=== PATIENT | male | born 1955 | race Caucasian/White ===

== ENCOUNTER 2018-02-23 10:22 | Day surgery (SDC) | payer MEDICARE, MEDICAID ==
[2018-02-18 11:31] LABS: BASOPHILS % (AUTO) 0.3 % (0-1); EOSINOPHILS # (AUTO) 0.2 X10'3 (0-0.9); EOSINOPHILS % (AUTO) 3.7 % (0-6); HEMATOCRIT 43.7 % (42.0-52.0); HEMOGLOBIN 14.6 g/dl (14.0-17.9); LYMPHOCYTES % (AUTO) 21.2 % (21-51); MEAN CORPUSCULAR HEMOGLOBIN 29.6 PG (27.0-31.0); MEAN CORPUSCULAR HGB CONC 33.5 % (33.0-36.5); MEAN CORPUSCULAR VOLUME 88.1 FL (78-98); MEAN PLATELET VOLUME 7.5 FL (7.4-10.4); MONOCYTES # (AUTO) 0.5 X10'3 (0-0.9); MONOCYTES % (AUTO) 10.6 % (2-12); NEUTROPHILS # (AUTO) 3.2 X10'3 (1.8-7.7); NEUTROPHILS % (AUTO) 64.2 % (42-75); PLATELET COUNT 240 X10'3 (140-440); RED BLOOD COUNT 4.96 X10'6 (4.70-6.10); WHITE BLOOD COUNT 4.9 X10'3 (4.5-11.0)
[2018-02-18 11:41] LABS: ALBUMIN 3.5 G/DL (3.4-5.0); ANION GAP 9 (8-16); BLOOD UREA NITROGEN 22 MG/DL (7-18); BUN/CREATININE RATIO 22.2 (5.4-32.0); CALCIUM 8.7 MG/DL (8.5-10.1); CHLORIDE 106 MMOL/L (99-107); CREATININE 0.99 MG/DL (0.60-1.10); GLUCOSE 111 MG/DL (70-104); INR 1.1 INR; PARTIAL THROMBOPLASTIN TIME 30 SECONDS (22-32); POTASSIUM 4.3 MMOL/L (3.5-5.1); PROTHROMBIN TIME 11.1 SECONDS (9.0-12.0); SODIUM 142 MMOL/L (135-145); TOTAL CARBON DIOXIDE 26.8 MMOL/L (24-32); eGFR 77 ML/MIN
[~2018-02-23] VITALS: Ht 182.9 cm; Wt 109.0 kg
[2018-02-23] VITALS (10 sets, daily range): BP systolic 107–130; BP diastolic 51–95
[2018-02-23] MEDS ORDERED: diphenhydrAMINE 25mg capsule PO PRN (10:40)
[2018-02-23] MEDS ORDERED: LIDOcaine/PRILOcaine 5gm cream TP ONE (10:40)
[2018-02-23] MEDS ORDERED: LORazepam 0.5 MG tablet PO PRN (10:40)
[2018-02-23] MEDS ORDERED: CARV6.253 PO (11:06)
[2018-02-23] MEDS ORDERED: POTA20TA10 PO (11:06)
[2018-02-23] MEDS ORDERED: LISI-604 PO (11:06)
[2018-02-23] MEDS ORDERED: APIX5TAB3 PO (11:06)
[2018-02-23] MEDS ORDERED: FURO40TA4 PO (11:06)
[2018-02-23] MEDS ORDERED: midazolam 2 mg/2 ml injection ONE (13:10)
[2018-02-23] MEDS ORDERED: verapamil 2.5 mg/ml inj IV ONE (13:10)
[2018-02-23] MEDS ORDERED: fentaNYL/PF 50MCG/1 ML 2ML syringe ONE (13:10)
[2018-02-23] MEDS ORDERED: nitroGLYCERIN-Tridil 50MG/D5W 250 ML IV ONE (13:10)
[2018-02-23] MEDS ORDERED: iohexol 350MG/ML 100ml bottle IV ONE (13:11)
[2018-02-23] MEDS ORDERED: heparin 1,000unit/ml 10ml vial 10 ML ONE (13:11)
[2018-02-23] MEDS ORDERED: LIDOcaine 1% 30ml preserv. free vial ONE (13:11)
== END 2018-02-23 18:20 | disposition home or self-care (01) ==
LOC: SSTAY O 10:22
PROVIDERS: ATTEND Internal Medicine Interventional Cardiology
DX: I25.118 Atherosclerotic heart disease of native coronary artery with other forms of angina pectoris (principal); I48.91 Unspecified atrial fibrillation; I45.2 Bifascicular block; I25.82 Chronic total occlusion of coronary artery; I11.0 Hypertensive heart disease with heart failure; I50.22 Chronic systolic (congestive) heart failure; Z96.641 Presence of right artificial hip joint; Z79.01 Long term (current) use of anticoagulants; Z79.899 Other long term (current) drug therapy
CPT/HCPCS: 36415; 80048; 85025; 85610; 85730; 93005; 93458; 99152; A6257; A6402; C1769; J1644; J2250; J3010; J3490; J7030; Q0163; Q9967; A4620

== ENCOUNTER 2018-04-07 05:24 | Inpatient (IN) | payer MEDICARE, MEDICAID ==
[2018-04-05 13:33] LABS: BASOPHILS % (AUTO) 0.4 % (0-1); EOSINOPHILS # (AUTO) 0.3 X10'3 (0-0.9); EOSINOPHILS % (AUTO) 4.9 % (0-6); LYMPHOCYTES # (AUTO) 1.2 X10'3 (1.1-4.8); LYMPHOCYTES % (AUTO) 18.5 % (21-51); MEAN CORPUSCULAR HEMOGLOBIN 29.7 PG (27.0-31.0); MEAN CORPUSCULAR HGB CONC 33.8 % (33.0-36.5); MEAN CORPUSCULAR VOLUME 87.9 FL (78-98); MEAN PLATELET VOLUME 7.6 FL (7.4-10.4); MONOCYTES # (AUTO) 0.5 X10'3 (0-0.9); MONOCYTES % (AUTO) 8.5 % (2-12); NEUTROPHILS # (AUTO) 4.3 X10'3 (1.8-7.7); NEUTROPHILS % (AUTO) 67.7 % (42-75); PRE OP HEMATOCRIT 46.5 % (42.0-52.0); PRE OP HEMOGLOBIN 15.7 g/dL (14.0-17.9); PRE OP PLATELET COUNT 260 X10'3 (140-440); RED BLOOD COUNT 5.29 X10'6 (4.70-6.10); RED CELL DISTRIBUTION WIDTH 15.9 % (11.5-14.5)
[2018-04-05 13:35] LABS: CLARITY,URINE SLIGHTLY CLOUDY (Clear); COLOR,URINE YELLOW (Yellow); GLUCOSE, URINE NEGATIVE (Neg); KETONES,URINE NEGATIVE (Neg); LEUKOCYTE ESTERASE ,URINE NEGATIVE (Neg); NITRITES, URINE NEGATIVE (Neg); OCCULT BLOOD,URINE NEGATIVE (Neg); PROTEIN,URINE TRACE mg/dl (Neg); UROBILINOGEN,URINE 0.2 E.U/dL (0.2-1.0)
[2018-04-05 13:39] LABS: UA COLLECTION TYPE CLN CATCH MIDSTREAM
[2018-04-05 13:41] LABS: PRE OP PROTIME 10.5 SECONDS (9.0-12.0)
[2018-04-05 13:43] LABS: HEMOGLOBIN A1C 6.4 % (4.5-6.2)
[2018-04-05 13:43] LABS: HYALINE CASTS 0-3 /LPF (NEGATIVE); MUCUS STRANDS MANY /LPF (Neg); SQUAMOUS EPITHELIAL CELL,UR MODERATE /LPF (FEW)
[2018-04-05 13:44] LABS: BACTERIA,URINE FEW /HPF (Neg); RBC,URINE NONE SEEN /HPF (0-2); WBC,URINE NONE SEEN /HPF (0-4)
[2018-04-05 13:45] LABS: ALBUMIN 3.5 G/DL (3.4-5.0); ALKALINE PHOSPHATASE 100 IU/L (46-116); BLOOD UREA NITROGEN 17 MG/DL (7-18); BUN/CREATININE RATIO 16.3 (5.4-32.0); CALCIUM 9.1 MG/DL (8.5-10.1); CHLORIDE 101 MMOL/L (99-107); CREATININE 1.04 MG/DL (0.60-1.10); PRE OP ALT 48 U/L (30-65); PRE OP ANION GAP 8 (8-16); PRE OP AST 26 U/L (10-37); PRE OP BILIRUB, TOTAL 0.6 MG/DL (0.0-1.0); PRE OP GLUCOSE 112 MG/DL (70-104); PRE OP POTASSIUM 4.9 MMOL/L (3.4-5.1); PRE OP SODIUM 138 MMOL/L (135-145); TOTAL CARBON DIOXIDE 29.5 MMOL/L (24-32); TOTAL PROTEIN 7.1 G/DL (6.4-8.2); eGFR 72 ML/MIN
[2018-04-06 05:20] LABS: ABG BASE EXCESS -0.3 mmol/L (-2.0-3.0); ABG HCO3 22.8 mmol/L (22.0-26.0); ABG OXYGEN SATURATION 97.1 % (95-98); ABG PCO2 (T) 33.5 mmHg (35.0-48.0); ABG PH (T) 7.451 (7.350-7.450); ABG PO2 (T) 94.5 mmHg (83-108); ALLEN'S TEST Positive; FCOHb 0.7 % (0.5-1.5); FMetHb 0.2 % (0.3-1.12); FO2Hb 96.2 % (94-100); TOTAL HEMOGLOBIN 16.5 G/dl (14.0-18.0)
[~2018-04-07] VITALS: Ht 182.9 cm; Wt 113.0 kg
[2018-04-07] VITALS (16 sets, daily range): BP systolic 94–118; BP diastolic 62–82
[~2018-04-07 05:24] MED LIST: APIX5TAB3 PO; CARV6.253 PO; FURO40TA4 PO; LISI-604 PO; POTA20TA10 PO; ringers solution, lacted 1,000 ML IV SCH
[2018-04-07] MEDS ORDERED: metoprolol tartrate 12.5mg (1/2 tablet) PO ONE (05:30)
[2018-04-07] MEDS ORDERED: insulin regular, human 100 UNIT in normal saline 100ml IV soln 99 ML IV SCH ×2 (05:30)
[2018-04-07] MEDS ORDERED: famotidine 20mg tablet PO ONE (05:30)
[2018-04-07] MEDS ORDERED: LORazepam 2 mg/ml vial IV ONE (05:30)
[2018-04-07] MEDS ORDERED: Cefazolin 2GM/50ML dext iso,osmotic IVPB IV ONE (05:30)
[2018-04-07] MEDS ORDERED: dextrose 50%-water 50ml dispensing syringe IV PRN ×2 (05:30→12:45)
[2018-04-07] MEDS ORDERED: DOCUMENT DATE & TIME OF BETA-BLOCKER PO ONE (05:30)
[2018-04-07] MEDS ORDERED: vancomycin inj 1,500 MG in normal saline 300ml IV soln IV ONE (05:30)
[2018-04-07] MEDS: mupirocin 2% nasal ointment 1gm UD NS SCH ×4 (06:11→20:25)
[2018-04-07] MEDS ORDERED: MIDAZolam 1mg/ml 10ml vial ONE (07:03)
[2018-04-07] MEDS ORDERED: propofol inj 20 ML IV ONE (07:03)
[2018-04-07] MEDS ORDERED: SUFENTANIL CITRATE 50 MCG/ML 2ml ampule IV ONE (07:03)
[2018-04-07] MEDS ORDERED: DOPamine/D5W 400mg/250ml bag IV ONE (07:06)
[2018-04-07] MEDS ORDERED: sevoflurane 250ml liquid IH ONE (07:06)
[2018-04-07] MEDS ORDERED: NORepinephrine bitartrate 8 MG in NS 250 ML BAG (32 mcg/ml) IV ONE ×2 (07:06→09:00)
[2018-04-07 08:01] LABS: ABG HCO3 23.9 mmol/L (22.0-26.0); ABG OXYGEN SATURATION 96.8 % (95-98); ABG PH 7.343 (7.350-7.450); ABG PO2 93.9 mmHg (60.0-100.0); CL (ABG) 106 mmol/L (99-107); FCOHb 0.6 % (0.5-1.5); FMetHb 0.4 % (0.3-1.12); FO2Hb 95.8 % (94-100); GLUCOSE (ABG) 130 mg/dl (70-105); IONIZED CA (ABG) 1.17 mmol/L (1.03-1.32); K (ABG) 4.1 mmol/L (3.3-5.1); NA (ABG) 136 mmol/L (135-145); TOTAL HEMOGLOBIN 14.7 G/dl (14.0-18.0)
[2018-04-07] MEDS ORDERED: papaverine 30 mg/ml 2ml inj. IA ONE (08:21)
[2018-04-07] MEDS ORDERED: heparin 10,000 units/1 ML INJ IR ONE (08:22)
[2018-04-07 08:55] LABS: ABG BASE EXCESS VENOUS -2.8 mmol/L; ABG HCO3 VENOUS 22.7 mmol/L; ABG PCO2 VENOUS 42.3 mmHg; CL (ABG) 106 mmol/L (99-107); FCOHb VENOUS 0.7 %; FHHb VENOUS 19.9 %; FMetHb VENOUS 0.5 %; FO2Hb VENOUS 78.9 %; GLUCOSE (ABG) 152 mg/dl (70-105); IONIZED CA (ABG) 1.14 mmol/L (1.03-1.32); K (ABG) 4.3 mmol/L (3.3-5.1); NA (ABG) 135 mmol/L (135-145); TOTAL HEMOGLOBIN 14.5 G/dl (14.0-18.0)
[2018-04-07 09:00] LABS: ACT @ 1.70 U 298 SEC (193-297); ACT @ 2.84 U 462 SEC (260-420); BASELINE ACT 148 SEC (101-148)
[2018-04-07] MEDS ORDERED: calcium chloride 100 MG/1 ML inj IV ONE (09:00)
[2018-04-07] MEDS ORDERED: LIDOcaine 2% (20 mg/ml) 5ml cardiac syringe ONE (09:00)
[2018-04-07] MEDS ORDERED: heparin 1,000 units/ml 10ml inj ONE (09:00)
[2018-04-07] MEDS ORDERED: sodium bicarbonate (8.4%) 1 mEq/ml syringe ONE (09:00)
[2018-04-07] MEDS ORDERED: phenylephrine 10mg/ml inj. ONE (09:00)
[2018-04-07] MEDS ORDERED: potassium Cl 2 mEq/ml inj IV ONE (09:00)
[2018-04-07] MEDS ORDERED: albumin (human) 25% 100 ML IV solution IV ONE (09:00)
[2018-04-07] MEDS ORDERED: aminocaproic acid 250 MG/1 ML inj. ONE (09:00)
[2018-04-07] MEDS ORDERED: magnesium sulf 1 GM/2 ML ONE (09:00)
[2018-04-07] MEDS ORDERED: heparin 10,000 units/1 ML INJ ONE ×2 (09:00→14:00)
[2018-04-07] MEDS ORDERED: methylPREDNISolone sod. succ. 500mg inj ONE (09:00)
[2018-04-07 09:30] LABS: ABG BASE EXCESS -0.9 mmol/L (-2.0-3.0); ABG HCO3 24.5 mmol/L (22.0-26.0); ABG OXYGEN SATURATION 99.5 % (95-98); ABG PCO2 43.5 mmHg (35.0-45.0); ABG PH 7.369 (7.350-7.450); ABG PO2 307.2 mmHg (60.0-100.0); CL (ABG) 104 mmol/L (99-107); FCOHb 0.3 % (0.5-1.5); FMetHb 0.2 % (0.3-1.12); GLUCOSE (ABG) 146 mg/dl (70-105); IONIZED CA (ABG) 1.06 mmol/L (1.03-1.32); K (ABG) 4.1 mmol/L (3.3-5.1); NA (ABG) 133 mmol/L (135-145); TOTAL HEMOGLOBIN 12.2 G/dl (14.0-18.0)
[2018-04-07 09:45] LABS: ABG HCO3 VENOUS 24.4 mmol/L; ABG PCO2 VENOUS 48.2 mmHg; ABG PO2 VENOUS 59.1 mmHg; CL (ABG) 104 mmol/L (99-107); FCOHb VENOUS 0.7 %; FHHb VENOUS 10.9 %; FMetHb VENOUS 0.3 %; FO2Hb VENOUS 88.1 %; GLUCOSE (ABG) 143 mg/dl (70-105); IONIZED CA (ABG) 1.09 mmol/L (1.03-1.32); K (ABG) 4.3 mmol/L (3.3-5.1); NA (ABG) 135 mmol/L (135-145)
[2018-04-07 10:31] LABS: ABG BASE EXCESS -4.7 mmol/L (-2.0-3.0); ABG HCO3 21.5 mmol/L (22.0-26.0); ABG OXYGEN SATURATION 99.4 % (95-98); ABG PH 7.307 (7.350-7.450); ABG PO2 297.5 mmHg (60.0-100.0); CL (ABG) 105 mmol/L (99-107); FCOHb 0.2 % (0.5-1.5); FMetHb 0.6 % (0.3-1.12); FO2Hb 98.6 % (94-100); GLUCOSE (ABG) 151 mg/dl (70-105); IONIZED CA (ABG) 1.11 mmol/L (1.03-1.32); K (ABG) 5.5 mmol/L (3.3-5.1); NA (ABG) 133 mmol/L (135-145); TOTAL HEMOGLOBIN 13.2 G/dl (14.0-18.0)
[2018-04-07 10:50] LABS: ABG BASE EXCESS -1.3 mmol/L (-2.0-3.0); ABG HCO3 25.5 mmol/L (22.0-26.0); ABG OXYGEN SATURATION 99.3 % (95-98); ABG PH 7.309 (7.350-7.450); ABG PO2 309.2 mmHg (60.0-100.0); CL (ABG) 106 mmol/L (99-107); FCOHb 0.2 % (0.5-1.5); FMetHb 0.7 % (0.3-1.12); FO2Hb 98.4 % (94-100); GLUCOSE (ABG) 151 mg/dl (70-105); IONIZED CA (ABG) 1.09 mmol/L (1.03-1.32); K (ABG) 5.1 mmol/L (3.3-5.1); NA (ABG) 134 mmol/L (135-145); TOTAL HEMOGLOBIN 12.9 G/dl (14.0-18.0)
[2018-04-07 11:20] LABS: ABG OXYGEN SATURATION 99.2 % (95-98); ABG PCO2 47.1 mmHg (35.0-45.0); ABG PH 7.343 (7.350-7.450); ABG PO2 251.8 mmHg (60.0-100.0); CL (ABG) 107 mmol/L (99-107); FCOHb 0.2 % (0.5-1.5); FMetHb 0.7 % (0.3-1.12); FO2Hb 98.3 % (94-100); GLUCOSE (ABG) 143 mg/dl (70-105); IONIZED CA (ABG) 1.35 mmol/L (1.03-1.32); K (ABG) 4.8 mmol/L (3.3-5.1); NA (ABG) 135 mmol/L (135-145); TOTAL HEMOGLOBIN 12.4 G/dl (14.0-18.0)
[2018-04-07 12:16] LABS: ABG HCO3 24.9 mmol/L (22.0-26.0); ABG OXYGEN SATURATION 71.4 % (95-98); ABG PCO2 46.3 mmHg (35.0-45.0); ABG PH 7.348 (7.350-7.450); CL (ABG) 108 mmol/L (99-107); FCOHb 0.4 % (0.5-1.5); FMetHb 0.6 % (0.3-1.12); FO2Hb 70.7 % (94-100); GLUCOSE (ABG) 121 mg/dl (70-105); IONIZED CA (ABG) 1.28 mmol/L (1.03-1.32); K (ABG) 4.2 mmol/L (3.3-5.1); NA (ABG) 136 mmol/L (135-145); TOTAL HEMOGLOBIN 12.7 G/dl (14.0-18.0)
[2018-04-07 12:26] LABS: BASOPHILS % (AUTO) 0.1 % (0-1); EOSINOPHILS % (AUTO) 0.4 % (0-6); HEMATOCRIT 37.2 % (42.0-52.0); HEMOGLOBIN 12.6 g/dl (14.0-17.9); LYMPHOCYTES # (AUTO) 0.7 X10'3 (1.1-4.8); LYMPHOCYTES % (AUTO) 5.9 % (21-51); MEAN CORPUSCULAR HEMOGLOBIN 30.1 PG (27.0-31.0); MEAN CORPUSCULAR HGB CONC 33.8 % (33.0-36.5); MEAN CORPUSCULAR VOLUME 89.1 FL (78-98); MEAN PLATELET VOLUME 7.8 FL (7.4-10.4); MONOCYTES # (AUTO) 0.5 X10'3 (0-0.9); MONOCYTES % (AUTO) 4.8 % (2-12); NEUTROPHILS % (AUTO) 88.8 % (42-75); PLATELET COUNT 160 X10'3 (140-440); RED BLOOD COUNT 4.17 X10'6 (4.70-6.10); RED CELL DISTRIBUTION WIDTH 15.9 % (11.5-14.5); WHITE BLOOD COUNT 11.3 X10'3 (4.5-11.0)
[2018-04-07 12:33] LABS: INR 1.3 INR; PROTHROMBIN TIME 12.9 SECONDS (9.0-12.0)
[2018-04-07 12:41] LABS: ACTIVATED CLOTTING TIME 129 SEC (101-148)
[2018-04-07] MEDS ORDERED: niCARDipine/sod cl 20mg/200ml 200 ML IV PRN (12:43)
[2018-04-07] MEDS ORDERED: phenylephrine inj 10 MG in normal saline 250ml IV soln 250 ML IV PRN (12:43)
[2018-04-07] MEDS ORDERED: nitroGLYCERIN-Tridil 50MG/D5W 250 ML IV PRN (12:43)
[2018-04-07] MEDS ORDERED: sodium phosphate inj. 15 MMOL in dextrose 5%-water 150 ML IV PRN (12:45)
[2018-04-07] MEDS ORDERED: HYDROcodone/acetaminophen 10/325mg tab PO PRN ×2 (12:45)
[2018-04-07] MEDS ORDERED: ondansetron/PF 4mg/2ml inj IV PRN (12:45)
[2018-04-07] MEDS ORDERED: metoclopramide 5 mg/ml inj IV PRN (12:45)
[2018-04-07] MEDS ORDERED: potassium Cl 20mEq/100mL bag 100 ML IV PRN ×2 (12:45)
[2018-04-07] MEDS ORDERED: normal saline 250ml IV soln 250 ML IV PRN (12:45)
[2018-04-07] MEDS ORDERED: acetaminophen 325mg tablet PO PRN (12:45)
[2018-04-07] MEDS ORDERED: magnesium hydroxide 30ml (MOM) UD suspension PO PRN (12:45)
[2018-04-07] MEDS ORDERED: sodium phosphate inj. 30 MMOL in dextrose 5%-water 250 ML IV PRN (12:45)
[2018-04-07] MEDS ORDERED: Neutra Phos packet PO PRN (12:45)
[2018-04-07] MEDS: insulin Lispro (HumaLOG) vial - multi-dose SQ SCH ×2 (13:00→18:00)
[2018-04-07 13:10] LABS: ABG BASE EXCESS -1.8 mmol/L (-2.0-3.0); ABG HCO3 23.6 mmol/L (22.0-26.0); ABG OXYGEN SATURATION 85.8 % (95-98); ABG PCO2 (T) 41.8 mmHg (35.0-48.0); ABG PH (T) 7.369 (7.350-7.450); ABG PO2 (T) 51.6 mmHg (83-108); FCOHb 0.2 % (0.5-1.5); FMetHb 0.4 % (0.3-1.12); FO2Hb 85.3 % (94-100); MINUTE VOLUME 8 L/min; PATIENT TEMPERATURE 36.6; PEEP 10 cm H2O; RESPIRATORY RATE 12 b/min; RESPIRATORY RATE (OBSERVED) 12 b/min; TIDAL VOLUME 650 mL; TOTAL HEMOGLOBIN 14.8 G/dl (14.0-18.0)
[2018-04-07 13:15] LABS: BASOPHILS % (AUTO) 0 % (0-1); EOSINOPHILS # (AUTO) 0.1 X10'3 (0-0.9); EOSINOPHILS % (AUTO) 0.7 % (0-6); HEMATOCRIT 41.6 % (42.0-52.0); HEMOGLOBIN 14.1 g/dl (14.0-17.9); LYMPHOCYTES # (AUTO) 0.7 X10'3 (1.1-4.8); LYMPHOCYTES % (AUTO) 5.1 % (21-51); MEAN CORPUSCULAR VOLUME 88.3 FL (78-98); MEAN PLATELET VOLUME 7.4 FL (7.4-10.4); MONOCYTES # (AUTO) 1.1 X10'3 (0-0.9); MONOCYTES % (AUTO) 7.8 % (2-12); NEUTROPHILS # (AUTO) 11.8 X10'3 (1.8-7.7); NEUTROPHILS % (AUTO) 86.4 % (42-75); PLATELET COUNT 165 X10'3 (140-440); RED BLOOD COUNT 4.71 X10'6 (4.70-6.10); RED CELL DISTRIBUTION WIDTH 16.4 % (11.5-14.5); WHITE BLOOD COUNT 13.6 X10'3 (4.5-11.0)
[2018-04-07 13:25] LABS: PARTIAL THROMBOPLASTIN TIME 28 SECONDS (22-32)
[2018-04-07 13:29] LABS: ALANINE AMINOTRANSFERASE 34 U/L (12-78); ALBUMIN 2.6 G/DL (3.4-5.0); ALKALINE PHOSPHATASE 68 IU/L (46-116); ANION GAP 6 (8-16); ASPARTATE AMINO TRANSFERASE 57 U/L (10-37); BILIRUBIN,TOTAL 0.9 MG/DL (0.1-1.0); BLOOD UREA NITROGEN 17 MG/DL (7-18); BUN/CREATININE RATIO 15.6 (5.4-32.0); CHLORIDE 110 MMOL/L (99-107); CREATININE 1.09 MG/DL (0.60-1.10); GLUCOSE 112 MG/DL (70-104); MAGNESIUM 2.7 MG/DL (1.5-2.4); PHOSPHORUS 2.5 MG/DL (2.3-4.5); SODIUM 143 MMOL/L (135-145); TOTAL CARBON DIOXIDE 27.1 MMOL/L (24-32); TOTAL PROTEIN 5.2 G/DL (6.4-8.2); eGFR 69 ML/MIN
[2018-04-07 13:30] LABS: POTASSIUM 4.1 MMOL/L (3.5-5.1)
[2018-04-07] MEDS: insulin regular, human inj. 100 UNITS in normal saline 100ml IV soln 100 ML IV SCH ×16 (13:42→22:10)
[2018-04-07] MEDS: sodium chloride 0.45% 1,000 ML IV SCH (13:42)
[2018-04-07] MEDS: albumin (Human) 5% 250ml 250 ML IV PRN ×3 (13:42→17:22)
[2018-04-07] MEDS ORDERED: papaverine 30 mg/ml 2ml inj. ONE (14:00)
[2018-04-07] MEDS ORDERED: rocuronium 10mg/ml inj IV ONE ×2 (14:08)
[2018-04-07] MEDS: potassium Cl 20mEq/100mL bag 100 ML IV PRN (14:38)
[2018-04-07] MEDS: morphine 4 MG/ML inj SYRINge IV PRN ×3 (15:14→23:01)
[2018-04-07] MEDS: ceFAZolin 1GM/D5W- ADD-VANTAGE 50 ML IV SCH (15:54)
[2018-04-07] MEDS ORDERED: NORepinephrine 8mg/ 250ml NS 250 ML IV PRN (17:35)
[2018-04-07] MEDS: amiodarone/D5 360MG/200ML BAG 200 ML IV SCH ×2 (17:57→18:46)
[2018-04-07 19:33] LABS: BASOPHILS % (AUTO) 0.2 % (0-1); EOSINOPHILS % (AUTO) 0.1 % (0-6); HEMATOCRIT 40.3 % (42.0-52.0); HEMOGLOBIN 13.8 g/dl (14.0-17.9); LYMPHOCYTES # (AUTO) 0.5 X10'3 (1.1-4.8); LYMPHOCYTES % (AUTO) 3.5 % (21-51); MEAN CORPUSCULAR HEMOGLOBIN 30.3 PG (27.0-31.0); MEAN CORPUSCULAR HGB CONC 34.2 % (33.0-36.5); MEAN CORPUSCULAR VOLUME 88.5 FL (78-98); MEAN PLATELET VOLUME 7.9 FL (7.4-10.4); MONOCYTES # (AUTO) 0.7 X10'3 (0-0.9); MONOCYTES % (AUTO) 4.9 % (2-12); NEUTROPHILS # (AUTO) 12.3 X10'3 (1.8-7.7); NEUTROPHILS % (AUTO) 91.3 % (42-75); PLATELET COUNT 163 X10'3 (140-440); RED BLOOD COUNT 4.55 X10'6 (4.70-6.10); RED CELL DISTRIBUTION WIDTH 16.7 % (11.5-14.5); WHITE BLOOD COUNT 13.5 X10'3 (4.5-11.0)
[2018-04-07 20:00] LABS: ALBUMIN 3.4 G/DL (3.4-5.0); ANION GAP 7 (8-16); BLOOD UREA NITROGEN 18 MG/DL (7-18); BUN/CREATININE RATIO 16.4 (5.4-32.0); CALCIUM 8.6 MG/DL (8.5-10.1); CHLORIDE 109 MMOL/L (99-107); GLUCOSE 148 MG/DL (70-104); SODIUM 142 MMOL/L (135-145); TOTAL CARBON DIOXIDE 25.7 MMOL/L (24-32); eGFR 68 ML/MIN
[2018-04-07] MEDS: docusate sod 100mg capsule PO SCH (20:00)
[2018-04-07 20:04] LABS: POTASSIUM 4.6 MMOL/L (3.5-5.1)
[2018-04-07] MEDS: vancomycin/NS 1 GM ADD-VANTAGE 250 ML IV SCH (20:24)
[2018-04-07] MEDS: DOPamine 400mg/D5W 250ml 250 ML IV PRN (23:01)
[2018-04-08] VITALS (24 sets, daily range): BP systolic 76–114; BP diastolic 46–66
[2018-04-08] MEDS: ceFAZolin 1GM/D5W- ADD-VANTAGE 50 ML IV SCH ×4 (00:12→23:51)
[2018-04-08] MEDS: insulin regular, human inj. 100 UNITS in normal saline 100ml IV soln 100 ML IV SCH ×6 (01:14→04:13)
[2018-04-08 02:55] LABS: BASOPHILS % (AUTO) 0 % (0-1); EOSINOPHILS % (AUTO) 0 % (0-6); HEMATOCRIT 38.6 % (42.0-52.0); HEMOGLOBIN 12.9 g/dl (14.0-17.9); LYMPHOCYTES # (AUTO) 0.5 X10'3 (1.1-4.8); LYMPHOCYTES % (AUTO) 3.5 % (21-51); MEAN CORPUSCULAR HEMOGLOBIN 29.8 PG (27.0-31.0); MEAN CORPUSCULAR HGB CONC 33.3 % (33.0-36.5); MEAN CORPUSCULAR VOLUME 89.4 FL (78-98); MEAN PLATELET VOLUME 8.3 FL (7.4-10.4); MONOCYTES # (AUTO) 0.7 X10'3 (0-0.9); MONOCYTES % (AUTO) 4.3 % (2-12); NEUTROPHILS # (AUTO) 14.1 X10'3 (1.8-7.7); NEUTROPHILS % (AUTO) 92.2 % (42-75); PLATELET COUNT 159 X10'3 (140-440); RED BLOOD COUNT 4.32 X10'6 (4.70-6.10); RED CELL DISTRIBUTION WIDTH 16.1 % (11.5-14.5); WHITE BLOOD COUNT 15.3 X10'3 (4.5-11.0)
[2018-04-08 03:02] LABS: INR 1.1 INR; PARTIAL THROMBOPLASTIN TIME 29 SECONDS (22-32); PROTHROMBIN TIME 11.3 SECONDS (9.0-12.0)
[2018-04-08 03:06] LABS: ALANINE AMINOTRANSFERASE 34 U/L (12-78); ALBUMIN 3.1 G/DL (3.4-5.0); ALBUMIN/GLOBULIN RATIO 1.2 (1.1-1.5); ALKALINE PHOSPHATASE 56 IU/L (46-116); ANION GAP 10 (8-16); ASPARTATE AMINO TRANSFERASE 67 U/L (10-37); BLOOD UREA NITROGEN 19 MG/DL (7-18); BUN/CREATININE RATIO 18.6 (5.4-32.0); CALCIUM 8.4 MG/DL (8.5-10.1); CHLORIDE 109 MMOL/L (99-107); CREATININE 1.02 MG/DL (0.60-1.10); GLUCOSE 153 MG/DL (70-104); POTASSIUM 4.1 MMOL/L (3.5-5.1); SODIUM 142 MMOL/L (135-145); TOTAL PROTEIN 5.7 G/DL (6.4-8.2); eGFR 74 ML/MIN
[2018-04-08] MEDS: potassium Cl 20mEq/100mL bag 100 ML IV PRN (03:27)
[2018-04-08] MEDS: amiodarone/D5 360MG/200ML BAG 200 ML IV SCH ×3 (04:50→16:04)
[2018-04-08] MEDS: magnesium 4gm in 100ml NS 100 ML IV PRN (04:52)
[2018-04-08] MEDS: morphine 4 MG/ML inj SYRINge IV PRN ×3 (05:06→19:37)
[2018-04-08 05:35] LABS: ABG PO2 39.9 mmHg (60.0-100.0)
[2018-04-08] MEDS: mupirocin 2% nasal ointment 1gm UD NS SCH ×3 (07:45→19:36)
[2018-04-08] MEDS: metoprolol tartrate 12.5mg (1/2 tablet) PO SCH ×2 (07:45→19:48)
[2018-04-08] MEDS: docusate sod 100mg capsule PO SCH ×2 (07:58→19:35)
[2018-04-08] MEDS: atorvastatin 10mg tablet PO SCH (07:58)
[2018-04-08] MEDS: pantoprazole 40mg Tablet.DR PO SCH (07:58)
[2018-04-08] MEDS: vancomycin/NS 1 GM ADD-VANTAGE 250 ML IV SCH ×2 (07:59→19:36)
[2018-04-08] MEDS ORDERED: aspirin 325mg tablet, delayed-release (Ecotrin) PO SCH (08:00)
[2018-04-08] MEDS: insulin Lispro (HumaLOG) vial - multi-dose SQ SCH ×3 (08:45→18:58)
[2018-04-08] MEDS: DOPamine 400mg/D5W 250ml 250 ML IV PRN ×2 (10:55→22:22)
[2018-04-08] MEDS ORDERED: NORepinephrine 8mg/ 250ml NS 250 ML IV PRN (11:55)
[2018-04-08] MEDS ORDERED: glucagon, human recombinant 1mg kit SUBCUT PRN (21:45)
[2018-04-08] MEDS ORDERED: dextrose ORAL solution 15 GM/59 ML bottle PO PRN ×2 (21:45)
[2018-04-08] MEDS ORDERED: insulin Lispro (HumaLOG) vial - multi-dose SQ SCH (21:45)
[2018-04-08] MEDS ORDERED: ketorolac tromethamine 15mg/ml inj. IM PRN (21:45)
[2018-04-08] MEDS ORDERED: dextrose 50%-water 50ml dispensing syringe IV PRN ×2 (21:45)
[2018-04-09] VITALS (23 sets, daily range): BP systolic 86–124; BP diastolic 52–84
[2018-04-09 02:48] LABS: BASOPHILS % (AUTO) 0 % (0-1); EOSINOPHILS % (AUTO) 0 % (0-6); HEMATOCRIT 34.9 % (42.0-52.0); HEMOGLOBIN 11.9 g/dl (14.0-17.9); LYMPHOCYTES # (AUTO) 0.5 X10'3 (1.1-4.8); LYMPHOCYTES % (AUTO) 2.9 % (21-51); MEAN CORPUSCULAR HEMOGLOBIN 30.1 PG (27.0-31.0); MEAN CORPUSCULAR HGB CONC 33.9 % (33.0-36.5); MEAN CORPUSCULAR VOLUME 88.6 FL (78-98); MEAN PLATELET VOLUME 8.9 FL (7.4-10.4); MONOCYTES % (AUTO) 5.3 % (2-12); NEUTROPHILS # (AUTO) 17.1 X10'3 (1.8-7.7); NEUTROPHILS % (AUTO) 91.8 % (42-75); PLATELET COUNT 187 X10'3 (140-440); RED BLOOD COUNT 3.94 X10'6 (4.70-6.10); RED CELL DISTRIBUTION WIDTH 17.1 % (11.5-14.5); WHITE BLOOD COUNT 18.6 X10'3 (4.5-11.0)
[2018-04-09 03:07] LABS: ANION GAP 10 (8-16); BLOOD UREA NITROGEN 25 MG/DL (7-18); BUN/CREATININE RATIO 24.8 (5.4-32.0); CALCIUM 8.4 MG/DL (8.5-10.1); CHLORIDE 101 MMOL/L (99-107); CREATININE 1.01 MG/DL (0.60-1.10); GLUCOSE 176 MG/DL (70-104); MAGNESIUM 2.2 MG/DL (1.5-2.4); PHOSPHORUS 3.6 MG/DL (2.3-4.5); POTASSIUM 4.8 MMOL/L (3.5-5.1); SODIUM 135 MMOL/L (135-145); TOTAL CARBON DIOXIDE 24.1 MMOL/L (24-32); eGFR 75 ML/MIN
[2018-04-09] MEDS: amiodarone/D5 360MG/200ML BAG 200 ML IV SCH (04:19)
[2018-04-09] MEDS: magnesium 1gm/100ml D5W IVPB 100 ML IV PRN ×2 (04:23→04:58)
[2018-04-09] MEDS: ketorolac tromethamine 15mg/ml inj. IV PRN ×2 (04:49→17:39)
[2018-04-09] MEDS ORDERED: morphine 4 MG/ML inj SYRINge IV PRN (05:10)
[2018-04-09] MEDS ORDERED: furosemide 40mg/4ml inj IV ONE (07:10)
[2018-04-09] MEDS ORDERED: aspirin 325mg tablet, delayed-release (Ecotrin) PO SCH (08:00)
[2018-04-09] MEDS: spironolactone 25 MG tablet PO SCH (08:31)
[2018-04-09] MEDS: pantoprazole 40mg Tablet.DR PO SCH (08:31)
[2018-04-09] MEDS: mupirocin 2% nasal ointment 1gm UD NS SCH ×2 (08:31→20:00)
[2018-04-09] MEDS: atorvastatin 10mg tablet PO SCH (08:31)
[2018-04-09] MEDS: docusate sod 100mg capsule PO SCH ×2 (08:32→20:13)
[2018-04-09] MEDS: amiodarone 200mg tablet PO SCH ×2 (08:32→20:13)
[2018-04-09] MEDS: aspirin 81mg tablet.DR PO SCH (08:34)
[2018-04-09] MEDS: sodium chloride 0.45% 1,000 ML IV SCH (12:43)
[2018-04-09] MEDS: oxyCODONE/APAP 5-325mg tablet PO PRN (18:43)
[2018-04-09] MEDS: insulin glargine (Lantus) pen - multi-dose SQ SCH (21:00)
[2018-04-10] VITALS (24 sets, daily range): BP systolic 77–119; BP diastolic 51–77
[2018-04-10 03:05] LABS: BASOPHILS % (AUTO) 0 % (0-1); EOSINOPHILS % (AUTO) 0 % (0-6); HEMATOCRIT 32.5 % (42.0-52.0); LYMPHOCYTES # (AUTO) 0.5 X10'3 (1.1-4.8); LYMPHOCYTES % (AUTO) 4.4 % (21-51); MEAN CORPUSCULAR HEMOGLOBIN 30.1 PG (27.0-31.0); MEAN CORPUSCULAR HGB CONC 33.9 % (33.0-36.5); MEAN CORPUSCULAR VOLUME 88.8 FL (78-98); MONOCYTES # (AUTO) 0.9 X10'3 (0-0.9); MONOCYTES % (AUTO) 7.3 % (2-12); NEUTROPHILS # (AUTO) 10.6 X10'3 (1.8-7.7); NEUTROPHILS % (AUTO) 88.3 % (42-75); PLATELET COUNT 116 X10'3 (140-440); RED BLOOD COUNT 3.66 X10'6 (4.70-6.10); RED CELL DISTRIBUTION WIDTH 16.5 % (11.5-14.5)
[2018-04-10 03:15] LABS: ALBUMIN 2.7 G/DL (3.4-5.0); ANION GAP 9 (8-16); BLOOD UREA NITROGEN 36 MG/DL (7-18); BUN/CREATININE RATIO 40.9 (5.4-32.0); CALCIUM 8.3 MG/DL (8.5-10.1); CHLORIDE 101 MMOL/L (99-107); CREATININE 0.88 MG/DL (0.60-1.10); GLUCOSE 124 MG/DL (70-104); PHOSPHORUS 3.6 MG/DL (2.3-4.5); POTASSIUM 4.3 MMOL/L (3.5-5.1); SODIUM 136 MMOL/L (135-145); eGFR 88 ML/MIN
[2018-04-10] MEDS: magnesium 4gm in 100ml NS 100 ML IV PRN (03:38)
[2018-04-10] MEDS: potassium Cl 20mEq/100mL bag 100 ML IV PRN (03:40)
[2018-04-10] MEDS: spironolactone 25 MG tablet PO SCH (07:45)
[2018-04-10] MEDS: pantoprazole 40mg Tablet.DR PO SCH (07:45)
[2018-04-10] MEDS: mupirocin 2% nasal ointment 1gm UD NS SCH ×2 (07:45→19:00)
[2018-04-10] MEDS: docusate sod 100mg capsule PO SCH ×2 (07:45→19:59)
[2018-04-10] MEDS: oxyCODONE/APAP 5-325mg tablet PO PRN ×3 (07:45→19:59)
[2018-04-10] MEDS: atorvastatin 10mg tablet PO SCH (07:45)
[2018-04-10] MEDS: aspirin 81mg tablet.DR PO SCH (07:45)
[2018-04-10] MEDS: amiodarone 200mg tablet PO SCH (07:45)
[2018-04-10] MEDS: insulin glargine (Lantus) pen - multi-dose SQ SCH (19:01)
[2018-04-11] VITALS (23 sets, daily range): BP systolic 86–122; BP diastolic 54–80
[2018-04-11 04:24] LABS: BASOPHILS % (AUTO) 0 % (0-1); EOSINOPHILS # (AUTO) 0.2 X10'3 (0-0.9); EOSINOPHILS % (AUTO) 1.7 % (0-6); HEMOGLOBIN 9.9 g/dl (14.0-17.9); LYMPHOCYTES % (AUTO) 8.2 % (21-51); MEAN CORPUSCULAR HEMOGLOBIN 30.2 PG (27.0-31.0); MEAN CORPUSCULAR HGB CONC 34.1 % (33.0-36.5); MEAN CORPUSCULAR VOLUME 88.7 FL (78-98); MONOCYTES # (AUTO) 1.1 X10'3 (0-0.9); MONOCYTES % (AUTO) 9.2 % (2-12); NEUTROPHILS # (AUTO) 9.7 X10'3 (1.8-7.7); NEUTROPHILS % (AUTO) 80.9 % (42-75); PLATELET COUNT 153 X10'3 (140-440); RED BLOOD COUNT 3.28 X10'6 (4.70-6.10); RED CELL DISTRIBUTION WIDTH 16.4 % (11.5-14.5)
[2018-04-11 04:38] LABS: ALBUMIN 2.6 G/DL (3.4-5.0); ANION GAP 5 (8-16); BLOOD UREA NITROGEN 29 MG/DL (7-18); BUN/CREATININE RATIO 36.3 (5.4-32.0); CALCIUM 8.1 MG/DL (8.5-10.1); CHLORIDE 101 MMOL/L (99-107); GLUCOSE 127 MG/DL (70-104); MAGNESIUM 1.9 MG/DL (1.5-2.4); PHOSPHORUS 3.5 MG/DL (2.3-4.5); POTASSIUM 4.3 MMOL/L (3.5-5.1); SODIUM 133 MMOL/L (135-145); TOTAL CARBON DIOXIDE 26.6 MMOL/L (24-32); eGFR > 90 ML/MIN
[2018-04-11] MEDS: potassium Cl 20mEq/100mL bag 100 ML IV PRN (04:49)
[2018-04-11] MEDS: magnesium 4gm in 100ml NS 100 ML IV PRN (04:49)
[2018-04-11] MEDS: mupirocin 2% nasal ointment 1gm UD NS SCH ×2 (07:29→18:34)
[2018-04-11] MEDS: pantoprazole 40mg Tablet.DR PO SCH (07:29)
[2018-04-11] MEDS: atorvastatin 10mg tablet PO SCH (07:30)
[2018-04-11] MEDS: spironolactone 25 MG tablet PO SCH (07:30)
[2018-04-11] MEDS: aspirin 81mg tablet.DR PO SCH (07:30)
[2018-04-11] MEDS: amiodarone 200mg tablet PO SCH (07:30)
[2018-04-11] MEDS: docusate sod 100mg capsule PO SCH ×2 (07:30→19:24)
[2018-04-11] MEDS: sodium chloride 0.45% 1,000 ML IV SCH (12:43)
[2018-04-11] MEDS: oxyCODONE/APAP 5-325mg tablet PO PRN ×2 (13:23→19:24)
[2018-04-11] MEDS: insulin glargine (Lantus) pen - multi-dose SQ SCH (19:25)
[2018-04-12] VITALS (16 sets, daily range): BP systolic 98–124; BP diastolic 59–82
[2018-04-12 04:03] LABS: HEMATOCRIT 27.1 % (42.0-52.0); HEMOGLOBIN 9.1 g/dl (14.0-17.9); MEAN CORPUSCULAR HEMOGLOBIN 29.9 PG (27.0-31.0); MEAN CORPUSCULAR HGB CONC 33.6 % (33.0-36.5); MEAN PLATELET VOLUME 7.9 FL (7.4-10.4); PLATELET COUNT 166 X10'3 (140-440); RED BLOOD COUNT 3.05 X10'6 (4.70-6.10); RED CELL DISTRIBUTION WIDTH 16.5 % (11.5-14.5); WHITE BLOOD COUNT 12.3 X10'3 (4.5-11.0)
[2018-04-12 04:17] LABS: ALBUMIN 2.5 G/DL (3.4-5.0); ANION GAP 4 (8-16); BLOOD UREA NITROGEN 21 MG/DL (7-18); BUN/CREATININE RATIO 23.9 (5.4-32.0); CHLORIDE 100 MMOL/L (99-107); CREATININE 0.88 MG/DL (0.60-1.10); GLUCOSE 107 MG/DL (70-104); MAGNESIUM 1.8 MG/DL (1.5-2.4); PHOSPHORUS 3.2 MG/DL (2.3-4.5); POTASSIUM 4.3 MMOL/L (3.5-5.1); SODIUM 131 MMOL/L (135-145); TOTAL CARBON DIOXIDE 27.2 MMOL/L (24-32); eGFR 88 ML/MIN
[2018-04-12] MEDS: magnesium 4gm in 100ml NS 100 ML IV PRN (04:35)
[2018-04-12] MEDS: potassium Cl 20mEq/100mL bag 100 ML IV PRN (04:35)
[2018-04-12] MEDS ORDERED: magnesium 4gm in 100ml NS 100 ML IV PRN (06:55)
[2018-04-12] MEDS ORDERED: potassium Cl 20 mEq SR tablet PO PRN ×2 (06:55)
[2018-04-12] MEDS ORDERED: magnesium Cl slow-release 64mg tablet PO PRN (06:55)
[2018-04-12] MEDS ORDERED: potassium Cl 40MEQ/NS 500ml 500 ML IV PRN ×2 (06:55)
[2018-04-12] MEDS ORDERED: magnesium 1gm/100ml D5W IVPB 100 ML IV PRN (06:55)
[2018-04-12] MEDS: spironolactone 25 MG tablet PO SCH (07:04)
[2018-04-12] MEDS: atorvastatin 10mg tablet PO SCH (07:04)
[2018-04-12] MEDS: amiodarone 200mg tablet PO SCH (07:05)
[2018-04-12] MEDS: oxyCODONE/APAP 5-325mg tablet PO PRN ×2 (07:05→16:40)
[2018-04-12] MEDS: docusate sod 100mg capsule PO SCH ×2 (07:05→20:06)
[2018-04-12] MEDS: pantoprazole 40mg Tablet.DR PO SCH (07:05)
[2018-04-12] MEDS: aspirin 81mg tablet.DR PO SCH (07:05)
[2018-04-12] MEDS: magnesium Cl slow-release 64mg tablet PO SCH ×2 (07:15→20:06)
[2018-04-12] MEDS: potassium Cl 20 mEq SR tablet PO SCH ×2 (07:15→20:00)
[2018-04-12] MEDS: apixaban 5mg tablet PO SCH ×2 (07:16→20:06)
[2018-04-12] MEDS: furosemide 20MG tablet PO SCH ×2 (07:18→20:06)
[2018-04-12] MEDS: K and/or MAG REPLACEMENT MC SCH (07:21)
[2018-04-12] MEDS: carvedilol 6.25mg tablet PO SCH ×2 (08:00→20:06)
[2018-04-13 03:00] VITALS: BP 122/47
[2018-04-13 05:43] LABS: BASOPHILS % (AUTO) 0.1 % (0-1); EOSINOPHILS # (AUTO) 0.3 X10'3 (0-0.9); EOSINOPHILS % (AUTO) 2.6 % (0-6); HEMATOCRIT 26.1 % (42.0-52.0); HEMOGLOBIN 8.9 g/dl (14.0-17.9); LYMPHOCYTES # (AUTO) 0.8 X10'3 (1.1-4.8); LYMPHOCYTES % (AUTO) 6.1 % (21-51); MEAN CORPUSCULAR HEMOGLOBIN 30.1 PG (27.0-31.0); MEAN CORPUSCULAR HGB CONC 34.2 % (33.0-36.5); MEAN PLATELET VOLUME 7.7 FL (7.4-10.4); MONOCYTES # (AUTO) 1.3 X10'3 (0-0.9); MONOCYTES % (AUTO) 10.1 % (2-12); NEUTROPHILS # (AUTO) 10.8 X10'3 (1.8-7.7); NEUTROPHILS % (AUTO) 81.1 % (42-75); PLATELET COUNT 202 X10'3 (140-440); RED BLOOD COUNT 2.97 X10'6 (4.70-6.10); RED CELL DISTRIBUTION WIDTH 16.4 % (11.5-14.5); WHITE BLOOD COUNT 13.3 X10'3 (4.5-11.0)
[2018-04-13 06:00] LABS: ALBUMIN 2.5 G/DL (3.4-5.0); ANION GAP 7 (8-16); BLOOD UREA NITROGEN 19 MG/DL (7-18); CALCIUM 8.4 MG/DL (8.5-10.1); CHLORIDE 98 MMOL/L (99-107); CREATININE 0.76 MG/DL (0.60-1.10); GLUCOSE 115 MG/DL (70-104); MAGNESIUM 1.9 MG/DL (1.5-2.4); POTASSIUM 4.4 MMOL/L (3.5-5.1); SODIUM 132 MMOL/L (135-145); eGFR > 90 ML/MIN
[2018-04-13 07:00] VITALS: BP 106/67
[2018-04-13] MEDS: pantoprazole 40mg Tablet.DR PO SCH (07:49)
[2018-04-13] MEDS: furosemide 20MG tablet PO SCH (07:49)
[2018-04-13] MEDS: magnesium Cl slow-release 64mg tablet PO SCH (07:49)
[2018-04-13] MEDS: atorvastatin 10mg tablet PO SCH (07:49)
[2018-04-13] MEDS: spironolactone 25 MG tablet PO SCH (07:49)
[2018-04-13] MEDS: amiodarone 200mg tablet PO SCH (07:49)
[2018-04-13] MEDS: apixaban 5mg tablet PO SCH (07:49)
[2018-04-13] MEDS: docusate sod 100mg capsule PO SCH (07:49)
[2018-04-13] MEDS: aspirin 81mg tablet.DR PO SCH (07:49)
[2018-04-13] MEDS: carvedilol 6.25mg tablet PO SCH (07:49)
[2018-04-13] MEDS: oxyCODONE/APAP 5-325mg tablet PO PRN (07:50)
[2018-04-13] MEDS: K and/or MAG REPLACEMENT MC SCH (08:00)
[2018-04-13] MEDS: potassium Cl 20 mEq SR tablet PO SCH (08:00)
[2018-04-13] MEDS ORDERED: AMIO200T57 PO (08:38)
[2018-04-13] MEDS ORDERED: SPIR25TA PO (08:38)
[2018-04-13] MEDS ORDERED: ATOR10TA PO (08:38)
[2018-04-13] MEDS ORDERED: ASPI-1071 PO (08:38)
[2018-04-13] MEDS ORDERED: PER5325T PO (08:38)
== END 2018-04-13 10:50 | disposition home health service (06) | DRG 229 ==
LOC: PAS IN 05:24 → EDSTATUS 07:30 → CICU 2S 09:58 → PCU 3S 04-12 12:00
PROVIDERS: ADMIT Thoracic Surgery (Cardiothoracic Vascular Surgery); ATTEND Thoracic Surgery (Cardiothoracic Vascular Surgery)
PROC: 02580ZZ Destruction of Conduction Mechanism, Open Approach (ICD-10-PCS; 2018-04-07)
PROC: 021209W Bypass Coronary Artery, Three Arteries from Aorta with Autologous Venous Tissue, Open Approach (ICD-10-PCS; 2018-04-07)
PROC: 06BP4ZZ Excision of Right Saphenous Vein, Percutaneous Endoscopic Approach (ICD-10-PCS; 2018-04-07)
PROC: 5A1221Z Performance of Cardiac Output, Continuous (ICD-10-PCS; 2018-04-07)
PROC: B24BZZ4 Ultrasonography of Heart with Aorta, Transesophageal (ICD-10-PCS; 2018-04-07)
PROC: 02L70CK Occlusion of Left Atrial Appendage with Extraluminal Device, Open Approach (ICD-10-PCS; 2018-04-07)
PROC: 02HV33Z Insertion of Infusion Device into Superior Vena Cava, Percutaneous Approach (ICD-10-PCS; 2018-04-07)
PROC: B548ZZA Ultrasonography of Superior Vena Cava, Guidance (ICD-10-PCS; 2018-04-07)
PROC: 02100Z9 Bypass Coronary Artery, One Artery from Left Internal Mammary, Open Approach (ICD-10-PCS; principal; 2018-04-07 07:06)
DX: I25.10 Atherosclerotic heart disease of native coronary artery without angina pectoris (principal); J98.11 Atelectasis; I42.0 Dilated cardiomyopathy; I48.0 Paroxysmal atrial fibrillation; I25.5 Ischemic cardiomyopathy; I11.9 Hypertensive heart disease without heart failure; E66.9 Obesity, unspecified; E78.00 Pure hypercholesterolemia, unspecified; I34.0 Nonrheumatic mitral (valve) insufficiency; Z96.641 Presence of right artificial hip joint; M19.90 Unspecified osteoarthritis, unspecified site; Z79.01 Long term (current) use of anticoagulants; Z79.899 Other long term (current) drug therapy; R06.81 Apnea, not elsewhere classified; Z68.33 Body mass index [BMI] 33.0-33.9, adult
CPT/HCPCS: 0232T; 93312; 93325; 36415; 36600; 71045; 71046; 80048; 80053; 81001; 82330; 82435; 82803; 82947; 82948; 83036; 83735; 84100; 84132; 84295; 85018; 85025; 85027; 85347; 85384; 85610; 85730; 86885; 86900; 86901; 86920; 87070; 93005; 93880; 93971; 94002; 94003; 94010; 94667; 94668; 94760; 97110; 97116; 97161; 97530; A6213; A6255; A6257; A6258; A6402; A6449; A7000; A7048; C1751; C2618; J0690; J1265; J1644; J1815; J1885; J1940; J2001; J2060; J2150; J2250; J2270; J2370; J2440; J2704; J2930; J3370; J3475; J3480; J3490; J7030; J7120; P9045; P9047